=== PATIENT | female | born 1970 | race African-American/Black ===

== ENCOUNTER 2017-06-18 10:45 | Inpatient (IN) | payer BC ==
[~2017-06-18] VITALS: Ht 167.6 cm; Wt 123.7 kg
--- NOTE | ~2017-06-18 | CN ---
PATIENT NAME:LUI VARELA MEDICAL RECORD: [id number] : 72 LOCATION:D. D.2138 ADMIT DATE: 06/19/17 ACCOUNT: [id number] CONSULTING PHYSICIAN: KENDAL EDWARDS MD REFERRING PHYSICIAN: TOMEKA NAILS MD DATE OF CONSULTATION: 06/19/2017 Medical Consultation REASON FOR CONSULTATION: Heavy vaginal bleeding, uterine fibroids. HISTORY OF PRESENT ILLNESS AND INDICATION FOR HOSPITALIZATION: The patient is a 47-year-old, G6, para 3-0-3-3 with last menstrual period approximately 3 weeks ago who was admitted for shortness of breath and chest pain. The patient reports a longstanding history of heavy periods. The patient states over the last several years becoming increasingly heavier and lasting longer. Last cycle lasted up to 12 days. Through the cycle, the patient passes large clots and at times uses double protection. The patient has also had increased cramping and pain. She states that the last time she was seen by a warehouse insulation worker has been greater than 5 years. The patient states a history of abnormal Pap smears with cold knife cone. She states she has not followed up with Pap smear since. ALLERGIES: CODEINE. MEDICATIONS: None at the admission. PAST MEDICAL HISTORY: Hypertension, obesity, and reflux. PAST SURGICAL HISTORY: Conization and tubal ligation. PAST OBSTETRIC HISTORY: The patient reports 3 term deliveries, vaginal. PAST GYNECOLOGIC HISTORY: Abnormal Pap smear with treatment. Denies any infection. Last Pap greater than 5 years. SOCIAL HISTORY: The patient denies smoking or illicit drug use. She reports occasional alcohol use. REVIEW OF SYSTEMS: The patient denies weakness, fever, or unexplained weight loss or weight gain at this time. CENTRAL NERVOUS SYSTEM: The patient denies headache or dizziness or numbness. CARDIOVASCULAR: The patient denies chest pain, palpitations, orthopnea. She has reported occasional lower extremity edema. INFECTIOUS DISEASE: The patient denies fevers, chills, or sweats. GASTROINTESTINAL: The patient denies abdominal pain currently, emesis, diarrhea, or constipation. GENITOURINARY: The patient denies dysuria, urgency, frequency or hematuria. ENDOCRINE: The patient denies increasing thirst, tremor, or sweating. SKIN: The patient denies any bruising, or rashes. PULMONARY: The patient denies cough, wheezing, or being short of breath at this time. MUSCULOSKELETAL: The patient denies joint pains or arthritis. PHYSICAL EXAMINATION: VITAL SIGNS: Temperature 97.7, pulse 73, respirations of 16, blood pressure CONSULT REPORT [id number] LUI VARELA S 139/67, pulse ox 100%. GENERAL: This is an obese -[place] female in no acute distress, appearing her stated age. HEAD AND NECK: Grossly atraumatic and normocephalic. CHEST: Deferred. ABDOMEN: Soft abdomen, nontender, nondistended. The mass palpated below the level of the umbilicus. PELVIC: Deferred at this time. SKIN: Warm and dry. EXTREMITIES: No clubbing, no cyanosis. Trace edema. LABORATORY DATA: H&H of 7.6 and 26.1, platelets at 176, WBCs at 5.2. Chemistry: Sodium 138, potassium 3.6, chloride 104, BUN 9, creatinine 0.8. Pelvic ultrasound; ultrasound shows a uterus prominent in size at 12.3 x 11.4 and 11.5 cm. It is heterogeneous with multiple nodules in the uterus, largest measuring 6 x 8 x 5. Endometrial stripe is not well visualized and the ovaries are not seen. There is no mention of free fluid in the pelvis. ASSESSMENT AND PLAN: This is a 47-year-old female with symptomatic fibroid uterus and menorrhagia to anemia. I am going to recommend that she begin on oral progestins to stabilize endometrium to hopefully prevent another cycle before she can be evaluated in the clinic. I have asked her to present Thursday morning for evaluation at 8:00 at the [facility]. Then tend to do an endometrial biopsy as well as Pap smear at that time. I have discussed with her, her different options to include medical and surgical. I have written a prescription for Lysteda 650 mg tablets to be taken every 8 hours as instructed for heavy periods. The patient's dysmenorrhea is likely secondary to her myomas. The patient has been given bleeding precautions and I will be on-call this weekend and able to address any concerns as they come up. Thank you for the consultation. TRANSINT:[id number] Voice Confirmation ID: [id number] DOCUMENT ID: [id number] KENDAL EDWARDS MD at 0659 CC: [id number] DICTATION DATE: 06/19/17 1803 LEAD CONSULTANT: 06/20/17 0425 DIS IN 06/20/17 [facility] [address] [place] [address]
[2017-06-18 11:37] LABS: BASOPHILS 0.4 % (0-2); EOSINOPHILS 0.8 % (0-7); HEMATOCRIT 22.8 % (36.0-48.0); IMMATURE GRANULOCYTES 0.2 % (0-5); LYMPHOCYTES 25.6 % (15-50); MCHC 27.2 g/dL (31.0-37.0); MEAN PLATELET VOLUME 8.8 fL (7.4-10.4); MONOCYTES 6.8 % (2-11); NEUTROPHILS 66.2 % (40-80); PLATELET COUNT 179 10x3/uL (130-400); RBC 3.68 10x6/uL (4.00-5.40); RDW 20.4 % (11.5-14.5)
[2017-06-18 11:42] LABS: MCH 16.8 pg (26.0-34.0)
[2017-06-18 11:45] LABS: HEMOGLOBIN 6.2 g/dL (12-16)
[2017-06-18 12:04] LABS: ALBUMIN 3.6 g/dL (3.4-5.0); ALKALINE PHOSPHATASE 64 U/L (46-116); ALT (SGPT) 15 U/L (10-68); CALC OSMOLALITY 271 mosm/kg (275-300); CALCIUM 8.8 mg/dL (8.5-10.1); CARBON DIOXIDE 23.8 mmol/L (21.0-32.0); CHLORIDE - SERUM 103 mmol/L (98-107); CREATININE - SERUM 0.7 mg/dL (0.6-1.3); GLUCOSE 95 mg/dL (74-106); POTASSIUM - SERUM 3.3 mmol/L (3.5-5.1); PROTEIN - SERUM 7.5 g/dL (6.4-8.2); SODIUM 137 mmol/L (136-145); UREA NITROGEN 8 mg/dL (7-18); eGFR NON AFRICAN AMERICAN > 90 mL/min (90-120)
[2017-06-18 12:27] LABS: CREATINE KINASE 217 UL (21-215); PRO BNP 51 pg/mL (0-125); TROPONIN-I < 0.017 ng/mL (0.000-0.060)
[2017-06-18 12:46] LABS: CKMB 0.1 U/L (0.0-3.6)
[2017-06-18 17:00] VITALS: BP 130/71; BMI 42.8
[2017-06-18 22:00] VITALS: BP 123/66
[2017-06-19 06:45] VITALS: BP 128/75
[2017-06-19 08:28] VITALS: BP 135/68
[2017-06-19 09:59] LABS: BASOPHILS 0.2 % (0-2); EOSINOPHILS 0.6 % (0-7); HEMATOCRIT 24.3 % (36.0-48.0); IMMATURE GRANULOCYTES 0.2 % (0-5); LYMPHOCYTES 28.8 % (15-50); MCHC 28.8 g/dL (31.0-37.0); MEAN PLATELET VOLUME 9.4 fL (7.4-10.4); MONOCYTES 8.3 % (2-11); NEUTROPHILS 61.9 % (40-80); PLATELET COUNT 176 10x3/uL (130-400); RBC 3.73 10x6/uL (4.00-5.40); RDW 23.2 % (11.5-14.5); WBC 5.2 10x3/uL (4.8-10.8)
[2017-06-19 10:05] LABS: MCH 18.8 pg (26.0-34.0); MCV 65.1 fL (80.0-100.0)
[2017-06-19 10:10] LABS: APTT 28.4 SECONDS (22.8-39.4); INR 0.99 (0.85-1.17); PROTIME 12.7 SECONDS (11.6-15.0)
[2017-06-19 10:13] LABS: ALBUMIN 3.3 g/dL (3.4-5.0); ALKALINE PHOSPHATASE 58 U/L (46-116); ALT (SGPT) 16 U/L (10-68); CALC OSMOLALITY 274 mosm/kg (275-300); CALCIUM 8.7 mg/dL (8.5-10.1); CARBON DIOXIDE 25.1 mmol/L (21.0-32.0); CHLORIDE - SERUM 104 mmol/L (98-107); CREATININE - SERUM 0.8 mg/dL (0.6-1.3); GLUCOSE 90 mg/dL (74-106); POTASSIUM - SERUM 3.6 mmol/L (3.5-5.1); PROTEIN - SERUM 7.4 g/dL (6.4-8.2); SODIUM 138 mmol/L (136-145); UREA NITROGEN 9 mg/dL (7-18); eGFR NON AFRICAN AMERICAN 82 mL/min (90-120)
[2017-06-19 10:40] VITALS: Ht 167.6 cm; Wt 123.7 kg
[2017-06-19 12:48] VITALS: BP 135/58
[2017-06-19 16:09] VITALS: BP 139/67
[2017-06-19 17:21] LABS: HEMATOCRIT 26.1 % (36.0-48.0); HEMOGLOBIN 7.6 g/dL (12-16)
[2017-06-19 22:09] LABS: HEMATOCRIT 25.8 % (36.0-48.0); HEMOGLOBIN 7.6 g/dL (12-16)
[2017-06-19 23:00] VITALS: BP 135/80
[2017-06-20 03:39] LABS: BASOPHILS 0.2 % (0-2); EOSINOPHILS 0.9 % (0-7); IMMATURE GRANULOCYTES 0.3 % (0-5); LYMPHOCYTES 28.4 % (15-50); MCHC 29.6 g/dL (31.0-37.0); MCV 65.4 fL (80.0-100.0); MONOCYTES 8.2 % (2-11); PLATELET COUNT 148 10x3/uL (130-400); RBC 3.67 10x6/uL (4.00-5.40); RDW 23.1 % (11.5-14.5); WBC 5.8 10x3/uL (4.8-10.8)
[2017-06-20 03:40] LABS: MCH 19.3 pg (26.0-34.0)
[2017-06-20 03:41] LABS: HEMOGLOBIN 7.1 g/dL (12-16)
[2017-06-20 04:18] LABS: CALC OSMOLALITY 276 mosm/kg (275-300); CALCIUM 8.5 mg/dL (8.5-10.1); CARBON DIOXIDE 23.1 mmol/L (21.0-32.0); CHLORIDE - SERUM 105 mmol/L (98-107); CREATININE - SERUM 0.8 mg/dL (0.6-1.3); GLUCOSE 112 mg/dL (74-106); POTASSIUM - SERUM 3.5 mmol/L (3.5-5.1); SODIUM 138 mmol/L (136-145); UREA NITROGEN 12 mg/dL (7-18); eGFR NON AFRICAN AMERICAN 82 mL/min (90-120)
[2017-06-20 06:23] VITALS: BP 132/50
[2017-06-20 08:00] VITALS: BP 133/51
[2017-06-20 08:45] LABS: HEMATOCRIT 25.1 % (36.0-48.0)
[2017-06-20 08:46] LABS: HEMOGLOBIN 7.3 g/dL (12-16)
[2017-07-07] MEDS ORDERED: PROVERA10 MG PO (11:01)
[2017-07-07] MEDS ORDERED: TRANEXAMIC ACI650 MG PO (11:02)
[2017-07-07] MEDS ORDERED: INDOCIN25 MG PO (11:02)
[2017-07-07] MEDS ORDERED: HEMATINIC W/FOL1 TAB PO (11:04)
== END 2017-06-20 10:57 | disposition home or self-care (01) | DRG 760 ==
LOC: D.ER 10:45 → D.M2 16:02 → OBSVTIME 18:00 → D.M2 06-19 08:51
PROVIDERS: Emergency Medicine; Internal Medicine Nephrology
DX: D25.9 Leiomyoma of uterus, unspecified (principal); Z68.41 Body mass index [BMI] 40.0-44.9, adult; D50.9 Iron deficiency anemia, unspecified; I10 Essential (primary) hypertension; E66.01 Morbid (severe) obesity due to excess calories; K21.9 Gastro-esophageal reflux disease without esophagitis; E87.6 Hypokalemia; F41.9 Anxiety disorder, unspecified; Z86.73 Personal history of transient ischemic attack (TIA), and cerebral infarction without residual deficits

== ENCOUNTER 2017-07-08 05:30 | Inpatient (IN) | payer BC ==
[2017-07-07 12:02] LABS: HEMATOCRIT 32.2 % (36.0-48.0); LYMPHOCYTES 19.5 % (15-50); MCV 69.7 fL (80.0-100.0); MEAN PLATELET VOLUME 8.6 fL (7.4-10.4); NEUTROPHILS 75.5 % (40-80); RBC 4.62 10x6/uL (4.00-5.40); RDW 28.5 % (11.5-14.5); WBC 7.1 10x3/uL (4.8-10.8)
[2017-07-07 12:06] LABS: MCH 19.5 pg (26.0-34.0); PLATELET COUNT 355 10x3/uL (130-400)
[2017-07-07 12:09] LABS: ALBUMIN 3.5 g/dL (3.4-5.0); ANION GAP 13.6 mmol/L (8-16); BILIRUBIN - TOTAL 0.35 mg/dL (0.2-1.3); CALCIUM 9.2 mg/dL (8.5-10.1); CARBON DIOXIDE 24.9 mmol/L (21.0-32.0); CREATININE - SERUM 0.9 mg/dL (0.6-1.3); POTASSIUM - SERUM 3.5 mmol/L (3.5-5.1); PROTEIN - SERUM 7.6 g/dL (6.4-8.2)
[~2017-07-08] VITALS: Ht 167.6 cm; Wt 121.8 kg
[2017-07-08] VITALS (20 sets, daily range): BP systolic 101–139; BP diastolic 51–72; Ht 167.6 cm; Wt 121.8 kg
--- NOTE | ~2017-07-08 | DS ---
PATIENT:LUI VARELA :72 MEDICAL RECORD: [id number] DISCHARGE SUMMARY ADMISSION DATE: 07/08/17 DISCHARGE DATE: 07/10/17 ADMISSION DATE: 07/08/2017. DATE OF DISCHARGE: 07/10/2017. ADMISSION DIAGNOSIS: Symptomatic fibroid uterus. DISCHARGE DIAGNOSIS: Symptomatic fibroid uterus.. PROCEDURE: Total abdominal hysterectomy with bilateral salpingo-oophorectomy. SURGEON: Kendal Edwards MD HISTORY OF PRESENT ILLNESS: See the H&P in the chart. SUMMARY OF HOSPITALIZATION: The patient was admitted to the hospital and underwent procedure without incident. At the time of discharge, she is tolerating regular diet, voiding without difficulty, and has flatus. The patient's discharge medications will include Percocet and ibuprofen. The patient has been instructed to follow up in the clinic in 2 weeks. The patient has had a standard postoperative precautions shared with her. TRANSINT:[id number] Voice Confirmation ID: [id number] DOCUMENT ID: [id number] KENDAL EDWARDS MD at 0912 CC: [id number] DICTATION DATE: 07/10/17 1223 PRECAST MOLDER: 07/11/17 0940 DIS IN 07/10/17 [facility] [address] [place] [address]
[~2017-07-08 05:30] MED LIST: HEMATINIC W/FOL1 TAB PO; INDOCIN25 MG PO; PROVERA10 MG PO; TRANEXAMIC ACI650 MG PO
[2017-07-08 06:12] LABS: HCG URINE NEGATIVE (NEGATIVE)
[2017-07-09 03:15] VITALS: BP 110/56
[2017-07-09 05:48] LABS: BASOPHILS 0.1 % (0-2); EOSINOPHILS 0.1 % (0-7); HEMATOCRIT 31.6 % (36.0-48.0); HEMOGLOBIN 9.3 g/dL (12-16); IMMATURE GRANULOCYTES 0.3 % (0-5); MCH 22.1 pg (26.0-34.0); MCHC 29.4 g/dL (31.0-37.0); MEAN PLATELET VOLUME 9.1 fL (7.4-10.4); MONOCYTES 4.5 % (2-11); RDW 28.1 % (11.5-14.5)
[2017-07-09 05:54] LABS: MCV 75.2 fL (80.0-100.0); PLATELET COUNT 258 10x3/uL (130-400); WBC 13.7 10x3/uL (4.8-10.8)
[2017-07-09 07:28] VITALS: BP 127/63
[2017-07-09 12:52] VITALS: BP 121/59
[2017-07-09 19:11] VITALS: BP 118/62
[2017-07-10 07:15] VITALS: BP 107/53
[2017-07-10 08:40] VITALS: BP 134/68
[2017-07-10 12:04] VITALS: BP 133/64
[2017-07-10] MEDS ORDERED: IBUPROFEN800 MG PO (12:54)
[2017-07-10] MEDS ORDERED: PERCOCET 7.5/321 TAB PO (12:56)
== END 2017-07-10 14:35 | disposition home or self-care (01) | DRG 743 ==
LOC: D.LD 05:30 → D.SDCHOLD 05:30 → D.LD 09:28
PROVIDERS: Obstetrics & Gynecology
PROC: 0UB70ZZ Excision of Bilateral Fallopian Tubes, Open Approach (ICD-10-PCS; 2017-07-08)
PROC: 0UT90ZZ Resection of Uterus, Open Approach (ICD-10-PCS; principal; 2017-07-08 07:30)
PROC: 0UT20ZZ Resection of Bilateral Ovaries, Open Approach (ICD-10-PCS; 2017-07-08 07:30)
DX: D25.9 Leiomyoma of uterus, unspecified (principal); Z86.73 Personal history of transient ischemic attack (TIA), and cerebral infarction without residual deficits; I10 Essential (primary) hypertension

== ENCOUNTER → 2018-07-28 13:42 | Outpatient (CLI) | payer BC ==
[2017-07-08 14:13] VITALS: BMI 43.3
[~2018-07-28 13:42] MED LIST changes: +IBUPROFEN800 MG PO; +PERCOCET 7.5/321 TAB PO
== END | disposition home or self-care (01) ==
LOC: D.HCCARDIO 13:42
DX: I20.9 Angina pectoris, unspecified (principal)

== ENCOUNTER → 2018-08-11 09:49 | Outpatient (CLI) | payer BC ==
[2017-07-08 14:13] VITALS: BMI 43.3
--- NOTE | ~2018-08-11 | ST ---
PATIENT:LUI VARELA MEDICAL RECORD: [id number] SEX: F LOCATION:[facility] ORDER #: ADMISSION DATE: 08/11/18 AGE OF PATIENT: 48 REFERRING PHYSICIAN: INTERPRETING PHYSICIAN: OLIVIA GODOY MD DATE OF SERVICE: 08/11/2018 PROCEDURE: Nuclear Stress Test. INDICATION: Chest pain, hypertension, family history of coronary artery disease, shortness of breath. She was exercised on standard David protocol for 7 minutes achieving greater than 85%, max target heart rate response with 31 mCi of sestamibi injected at peak stress, 10 mCi were used previously for rest images. FINDINGS: Gated SPECT reveals preserved ejection fraction at 72% with good wall motion and thickening and brightening throughout all segments. SPECT imaging Cardiolite was used as myocardial fusion agent. There is homogeneous uptake throughout all segments at rest and stress with no evidence of inducible ischemia or previous infarction. OVERALL IMPRESSION: 1. This is a normal nuclear stress test with no evidence of inducible ischemia or previous infarction. 2. Gated SPECT reveals a preserved ejection fraction at 72%. In this patient with ongoing symptomatology, the current scan does not suggest the presence of hemodynamically significant coronary artery disease. Evaluate noncardiac etiology of chest pain. TRANSINT:[id number] Voice Confirmation ID: [id number] DOCUMENT ID: [id number] OLIVIA GODOY MD CC: [id number] DICTATION DATE: 08/13/18 1229 SENIOR QUALITATIVE RESEARCHER: 08/14/18 0032 DEP CLI 08/11/18 [facility] [address] [place] [address]
== END | disposition home or self-care (01) ==
LOC: D.HCCARDIO 09:49
PROVIDERS: ATTEND Internal Medicine Cardiovascular Disease
DX: R94.39 Abnormal result of other cardiovascular function study (principal)

== ENCOUNTER → 2020-08-08 11:30 | Outpatient (CLI) | payer BC ==
[2019-07-22 10:10] VITALS: BMI 47.7
[~2020-08-08 11:30] MED LIST changes: +ALDACTONE50 MG PO; +CELEBREX200 MG PO; +DIETHYLPROPION PO; +DILAUDID4 MG PO; +ESTRACE1 MG PO; +GLUCOPHAGE1000 MG PO; +KLONOPIN0.5 MG PO; +VISTARIL50 MG PO; +WELLBUTRIN XL150 M1 PO
== END | disposition home or self-care (01) ==
LOC: D.MAMMO 11:30
PROVIDERS: ATTEND Family Medicine
DX: Z12.31 Encounter for screening mammogram for malignant neoplasm of breast (principal)